=== PATIENT | female | born 1995 | race Caucasian/White ===

== ENCOUNTER 2017-10-10 08:43 | Inpatient (IN) ==
[2017-10-10] MEDS ORDERED: *HR* Nalbuphine 10 MG/ML AMPUL IVP PRN (09:40)
[2017-10-10] MEDS ORDERED: Metoclopramide 10 MG/2 ML VIAL IVP PRN (09:40)
[2017-10-10] MEDS ORDERED: Famotidine 20 MG/2 ML VIAL IVP PRN (09:40)
[2017-10-10] MEDS ORDERED: Ondansetron 4 MG/2 ML VIAL IVP PRN (09:40)
[2017-10-10] MEDS ORDERED: Naloxone 0.4 MG/ML INJ IVP PRN (09:40)
[2017-10-10] MEDS ORDERED: Oxytocin 20 units/ LR 1000 mL 20 UNIT/1,000 ML BAG IVC SCH (09:45)
[2017-10-10] MEDS ORDERED: Ringers Solution, Lactated 1,000 ML IVC SCH (09:45)
--- NOTE | 2017-10-10 10:13 | OB/GYN History & Physical ---
Date of Encounter: 10/10/17 Time of Encounter: 10:03 Assessment and Plan (1) 38 weeks gestation of Current visit: Yes Status: Acute (2) Intrauterine Current visit: Yes Status: Acute Admit to L&D for observation of labor Active management preferred by patient Pain management plan - epidural Maternal/ status reassuring Reactive NST on admission Labs-CBC and clot to hold CEFM Anticipate Signed out to Dr. Youssef for management (3) Rh negative state in antepartum period Current visit: Yes Status: Acute Rhogam evaluation on delivery (4) SROM (spontaneous rupture of membranes) Current visit: Yes Status: Acute Temp evaluation q 2 hours while laboring History of Present Illness Chief complaint: SROM HPI: Ms. Patterson is a 22 year old female at 38 weeks 2 days gestation with an EDB of 10/22/17 dated by early ultrasound. She presents with c/o SROM at 0700 this morning. She reports clear fluid with no odor. She reports some mild contractions about 7 minutes apart. She endorses good fm and denies vb. Her has been complicated by Rh negative blood type and anemia. She has been seen by Dr. Morales. records are available and have been reviewed. Labs: A- GBS- HIV- Hep B- T. Palladium- GC/CL- Rubella immune Varicella immune Past Med Surg Social Fam HX - Past Medical History Medical history: non-contributory Psychiatric history: no psych history - Past Surgical History Surgical History: other Additional surgical history: boil lanced 10/09/2017 - Social History Smoking Status: Current every day smoker Packs per day: 1/2 Smokeless Tobacco Status: No Alcohol use: none Drug use: none - Family History Mother Name: oma patterson Living Status: Still Living Hx Family Medical Disorders: Yes (brain aneurysm 2016) Obstetrical History - Pregnancies : 2 Para: 0 Term: 0 : 0 Ab's: 1 (2017 Miscarriage) Livin Medications and Allergies Clindamycin HCl 300 mg PO QID 7 Days #21 capsule 04/20/17 [Rx] [facility] 04/20/17 [History] Colace 10/09/17 [History] Flintstones Gummies Chew Tab 10/09/17 [History] Iron 10/09/17 [History] 3 Allergy/AdvReac Type Severity Reaction Status Date / Time No Known Allergies Allergy Verified 10/09/17 11:34 Review of System OB All systems PM: reviewed and no additional remarkable complaints except as stated Exam - Constitutional Constitutional: well developed, well nourished, no acute distress, obese - HEENT HEENT: PERRL, Normocephaly, Mucus Membranes Moist - Neck Neck exam: full ROM - Lungs Respiratory exam: CTAB - Cardiovascular Cardiovascular exam: RRR, +S1, +S2 - Breasts Breast: bilateral: normal - Abdomen Abdomen: Present: bowel sounds normal, gravid, non tender - Extremities Extremities exam: normal capillary refill, normal inspection, pedal edema, radial pulses palpable and symmetrical - Vulva Vulva: bilateral: normal - Vagina Vagina: Present: normal moisture - Cervix Dilation: 2 (per RN) Effacement: 70 Station: -2 - Uterus Uterus exam: Present: normal size, normal contour - Adnexa Adnexa: bilateral: normal - Anus/Rectum Anus/Rectum: Present: normal perianal skin Results All other labs normal. - VTE Reasons for not Prescribing Prophylaxis: Treatment not Indicated - Low risk for VTE
[2017-10-10] MEDS ORDERED: Ringers Solution, Lactated 500 ML IVC ONE (10:18)
[2017-10-10] MEDS ORDERED: EPHEDrine 50 MG/ML VIAL IVP PRN (10:18)
--- NOTE | 2017-10-10 10:22 | Anesthesia Evaluation PreOp ---
Date of Encounter: 10/10/17 Time of Encounter: 10:20 - Past History Planned Operation: MAZIN Cardiac History: Denies any Significant Hx Pulmonary History: Smoker (1/2PPD) GERIATRIC NURSE PRACTITIONER History: Denies Any Significant HX Other Medical History: Denies Any Significant HX Anesthesia History: No Prior Anesthetic Complications, Past Anesthesia : Yes Alcohol Use: none Drug use: none Medications and Allergies Clindamycin HCl 300 mg PO QID 7 Days #21 capsule 04/20/17 [Rx] [facility] 04/20/17 [History] Colace 10/09/17 [History] Flintstones Gummies Chew Tab 10/09/17 [History] Iron 10/09/17 [History] 3 Allergy/AdvReac Type Severity Reaction Status Date / Time No Known Allergies Allergy Verified 10/09/17 11:34 - Meds/Allergy Pre-op Review Medications Reviewed: Yes Allergies Reviewed: Yes Beta Blockers on Current Med List: No Anesthesia Exam O2 Sat Height 1.75 m Weight 117.9 kg NPO (# of Hours): 6 Pain Scale: 5 Pain Scale Used: Numeric (1 - 10) - HEENT Pupil (Motor): Pupils equal Mallampati: II Teeth: Normal Oral Opening: Greater than 3 - GERIATRIC NURSE PRACTITIONER LOC: Oriented GERIATRIC NURSE PRACTITIONER Motor: Normal RUE, Normal LUE, Normal RLE, Normal LLE, Normal Face GERIATRIC NURSE PRACTITIONER Sensory: Normal: RUE, LUE, RLE, LLE, Face - Cardiac Rhythm: Regular Murmur: None JVD: No Carotid Bruit: No - Pulmonary Breath Sounds: bilateral Clear Respiratory Effort: Symmetrical Anesthesia Assess/Plan ASA Score: 2 Modified David Scale for Level of Consciousness: Cooperative, oriented, and tranquil Anesthetic Plan: General (plan b), Regional (plan a) Autologous Blood: Yes Monitoring Plan: Standard Monitors Recovery Plan: PACU
[2017-10-10] MEDS ORDERED: Epidural Premix (fent/bupiv) 110 ML EP SCH (10:30)
[2017-10-10 11:08] LABS: Basophils # 0.1 K/mcL (0.0-0.2); Basophils % 0.5 %; Eosinophils # 0.2 K/mcL (0.0-0.6); Eosinophils % 0.9 %; Hematocrit 37.6 % (35.3-44.9); Hemoglobin 12.7 g/dL (11.5-15.4); Immature Granulocytes % 3.3 % (0-4); Lymphocytes # 2.7 K/mcL (0.6-4.6); Lymphocytes % 14.6 %; Mean Corpuscular HGB Conc 33.8 g/dL (31.6-35.5); Mean Corpuscular Hemoglobin 30.2 pg (28.0-33.3); Mean Corpuscular Volume 89.3 fL (83.0-100.0); Mean Platelet Volume 11.4 fL (9.4-12.4); Monocytes # 1.5 K/mcL (0.0-1.3); Monocytes % 7.9 %; Neutrophils # 13.5 K/mcL (1.6-8.9); Platelet Count 260 K/mcL (140-400); Red Blood Count 4.21 M/mcL (3.82-4.97); Red Cell Distribution Width 13.7 % (11.5-14.5); Segmented Neutrophils % 72.8 %
[2017-10-10 11:37] LABS: Amphetamine Screen,Urine Negative ng/mL (Cutoff=1000); Barbiturate Screen,Urine Negative ng/mL (Cutoff=200); Benzodiazepines Screen,Urine Negative ng/mL (Cutoff=200); Cannabinoid Screen,Urine Negative ng/mL (Cutoff = 50); Cocaine Screen,Urine Negative ng/mL (Cutoff= 300); Opiate Screen,Urine Negative ng/mL (Cutoff=300); Phencyclidine Screen,Urine Negative ng/mL (Cutoff=25)
[2017-10-10] MEDS ORDERED: Lidocaine -MPF 1% 5 ML AMPUL ONE (13:59)
--- NOTE | 2017-10-10 14:31 | Anesthesia Procedures ---
Date of Encounter: 10/10/17 Time of Encounter: 14:29 Procedures: Anesthesia - Epidural/Spinal Patient ID/Chart reviewed: Yes Patient examined: Yes OB Eval: Gestational age: 38.2 OB Eval: : 2 OB Eval: Hx Para: 0 OB Eval: Dilated at (cm): 3 OB Eval: Contractions: Non-stressed pattern Consent Obtained: Yes Supplemental Oxygen: None/Room Air Site Prep: Aseptic Technique, Sterile prep and drape, Povidone-Iodine 1% Patient position: upright Local Anesthetic: Lidocaine 1% Amount of Local Anesthetic used: 3 Touhy Needle Gauge: 18 Touhy Needle Depth (cm): 9 Catheter Depth at Skin (cm): 20 Test Dose (1.5% Lido + Epi): Volume given (mls): 5 Test Dose Result: Negative Loading Dose: Other: 10mls of epidural pharm bag premix solution Loading Dose Administered: Thru Catheter Infusion Med: 0.125% Bupivacaine w/ 2 mcg/ml Fentanyl Infusion Rate (mls/hr): 16 ([id number]) Catheter Secured in Place: Tegaderm, Tape Interspace Used: L4-L5 Loss of Resistance (JAK): Yes Blood: No CSF: No Paresthesia: No Procedure: pt tolerated procedure well. no complications. vss. fhr stable. see nursing notes for complete vitals.
--- NOTE | 2017-10-10 15:36 | OB Labor Progress Note ---
Date of Encounter: 10/10/17 Time of Encounter: 15:33 Labor Progress Note - Subjective Subjective: Patient comfortable with epidural - Cervix Cervix: 4/70/-2 - Heart Tones Heart Tones: Category 1 tracing - [place]: IUPC in place-contractions every 7+ movements - Interventions Interventions: Increase pitocin - Plan Plan: Continue active management Titrate pitocin to adequate contraction pattern per policy CEFM Peanut ball and frequent position changes Anticipate
--- NOTE | 2017-10-10 18:49 | OB Labor Progress Note ---
Date of Encounter: 10/10/17 Time of Encounter: 18:46 Labor Progress Note - Subjective Subjective: Pt comfortable with epidural. Plan of care discussed with patient. - Cervix Cervix: 6/70/-1 - Heart Tones Heart Tones: Baseline 140 Moderate variability Accelerations present 15x15 No decelerations FHR category I - [place]: Contractions every 2 minutes and palpate strong - Interventions Interventions: SVE Position change - Plan Plan: Continue active management Titrate pitocin to adequate pattern Continue frequent position changes Anticipate
[2017-10-10] MEDS ORDERED: Penicillin G Potassium 5,000,000 UNIT in 0.9 % Sodium Chloride Mini Bag 100 ML IVPB ONE (21:29)
--- NOTE | 2017-10-10 23:06 | OB Labor Progress Note ---
Date of Encounter: 10/10/17 Time of Encounter: 23:04 Labor Progress Note - Subjective Subjective: Pt remains comfortable with epidural. Reports feeling more pressure. - Cervix Cervix: 6/100/+1 - Heart Tones Heart Tones: Baseline 135 Moderate variability Accelerations present 15x15 No decelerations FHR Category I - Petros Petros: Contractions every 2-3 minutes - Interventions Interventions: SVE Left lateral position change - Plan Plan: Continue active management Continue penicillin prophylaxis Frequent position changes Anticipate
[2017-10-11] MEDS ORDERED: Penicillin G Potassium 2,500,000 UNIT in 0.9 % Sodium Chloride 100 ML IVPB SCH
[2017-10-11] MEDS ORDERED: Acetaminophen 325 MG TABLET PO PRN (00:09)
--- NOTE | 2017-10-11 02:04 | OB Labor Progress Note ---
Date of Encounter: 10/11/17 Time of Encounter: 01:57 Labor Progress Note - Subjective Subjective: Patient is comfortable with epidural. - Cervix Cervix: 9/100/+1 - Heart Tones Heart Tones: Category I tracing - [place]: Every 2+ minutes - Interventions Interventions: SVE position changes - Plan Plan: Continue active management Frequent position changes Anticipate
--- NOTE | 2017-10-11 03:49 | OB Labor Progress Note ---
Date of Encounter: 10/11/17 Time of Encounter: 03:38 Labor Progress Note - Subjective Subjective: Pt remains comfortable with epidural. - Cervix Cervix: 9.5/100/+2 - Heart Tones Heart Tones: FHR Category I - Godwin Godwin: IUPC contractions every 2-3 minutes. - Interventions Interventions: SVE High fowlers x 1 hour - Plan Plan: Continue active management High metz's x 1 hour Anticipate vaginal delivery
--- NOTE | 2017-10-11 05:36 | OB/GYN Procedure Note ---
Delivery - Delivery Date: 10/11/17 Provider: Simran Lund Intrapartum events: none Delivery induction: none Delivery augmentation: pitocin Delivery monitor: external FHT, external uterine, internal FHT, internal uterine Anesthesia: epidural Quantitated Blood Loss: 150 - (s) Infant A Infant Delivery Date: 10/11/17 Delivery Time: 05:00 Presentation: vertex Position: PRETTY Route of delivery: Gender: Male Viability: Viable Pounds: 7 Ounces: 1 Weight Gram: 3.2 kg at 1 minute: 8 at 5 mins: 9 Shoulder Dystocia: not encountered Specimens collected: cord blood Placenta: spontaneous Cord: 3 umbilical vessels - Repair Episiotomy: none Laceration Description: Periurethral (right - hemostatic), Perineal - 1st Degree (repaired ) - Complications Delivery complications: none Delivery comments: Ms. Suazo is a 22-year-old G2 now P1 who is admitted for spontaneous rupture of membranes. She progressed with Pitocin augmentation to the second stage of labor. Under maternal effort she delivered a viable male infant, PRETTY over a first-degree laceration. No nuchal cord was identified and no shoulder dystocia was encountered. The was placed on the maternal abdomen where the mouth and nares were bulb suctioned. scores were 8 at 1 minute and 9 at 5 minutes. The infant weighed 7 lbs. 1 oz (3200g). The placenta delivered ( [place]) spontaneously, intact, with a three-vessel cord. Inspection revealed a first-degree perineal laceration and a right periurethral laceration. The first-degree laceration was repaired with a 3-0 Monocryl suture. The periurethral laceration was left unrepaired as it was hemostatic. The uterus was firm with no active bleeding. The repair was done under epidural anesthesia. EBL was 150 mL. Placenta and umbilical artery blood gases were not sent. There were no complications during the procedure. Mom and baby are skin to skin and nursing following delivery. - Disposition Mom disposition: stable in LDR [place] disposition: stable in LDR
[2017-10-11] MEDS ORDERED: Benzocaine/Menthol 56 GM AEROSOL SPRAY TP PRN (09:24)
[2017-10-11] MEDS ORDERED: Prenatal Vit/FA 1 EACH TABLET PO SCH (09:24)
[2017-10-11] MEDS ORDERED: Oxytocin 20 units/ LR 1000 mL 20 UNIT/1,000 ML BAG IVC SCH (09:24)
[2017-10-11] MEDS ORDERED: Rho Immune Globulin 1,500 UNIT SYRINGE IM PRN (09:24)
[2017-10-11] MEDS: Acetaminophen 325 MG TABLET PO PRN (11:56)
[2017-10-11] MEDS: Ibuprofen 600 MG TABLET PO PRN ×2 (11:56→18:27)
[2017-10-12] MEDS: Ibuprofen 600 MG TABLET PO PRN (07:01)
--- NOTE | 2017-10-12 09:21 | Discharge Summary ---
Date of Encounter: 10/12/17 Time of Encounter: 09:33 - Discharge Diagnosis (1) Vaginal delivery Priority: Primary Status: Acute (2) Breast feeding status of mother Priority: Secondary Status: Acute Comments: pump rx given (3) Rh negative state in antepartum period Priority: Secondary Status: Acute Comments: Rhogam prior to discharge. - Discharge Medications Prescriptions: Ibuprofen [Motrin] 600 mg PO Q6HR PRN #30 tablet PRN Reason: Cramping Docusate [Colace] 100 mg PO BID #60 capsule Home Medications: Flintstones Gummies Chew Tab 10/09/17 [History] Iron 10/09/17 [History] Benzocaine/Menthol [place] [Dermoplast [place]] 1 appl TP QID PRN aerosol 10/12/17 [Rx] Breast Pump [BREAST PUMP] 1 each .ROUTE AD #1 each 10/12/17 [Rx] Docusate [Colace] 100 mg PO BID #60 capsule 10/12/17 [Rx] Ibuprofen [Motrin] 600 mg PO Q6HR PRN #30 tablet 10/12/17 [Rx] Vit/FA 1 each PO DAILY tablet 10/12/17 [Rx] Allergies/Adverse Reactions: 3 Allergy/AdvReac Type Severity Reaction Status Date / Time No Known Allergies Allergy Verified 10/09/17 11:34 Data Procedures and tests throughout hospitalization: Laboratory Tests 10/10/17 10/10/17 10/11/17 10:28 10:28 05:47 WBC 18.6 H RBC 4.21 Hgb 12.7 Hct 37.6 MCV 89.3 MCH 30.2 MCHC 33.8 RDW 13.7 Plt Count 260 MPV 11.4 Immature Gran % 3.3 Seg Neutrophils % 72.8 Lymphocytes % 14.6 Monocytes % 7.9 Eosinophils % 0.9 Basophils % 0.5 Neutrophils # 13.5 H Lymphocytes # 2.7 Monocytes # 1.5 H Eosinophils # 0.2 Basophils # 0.1 Urine Opiates Screen Negative Ur Barbiturates Screen Negative Ur Phencyclidine Scrn Negative Ur Amphetamines Screen Negative U Benzodiazepines Scrn Negative Urine Cocaine Screen Negative U Marijuana (THC) Screen Negative Ur Drug Screen Interp See Below Screen NEGATIVE Baby's Blood Type A RH POSITIVE Mother's Blood Type A RH NEGATIVE Rhogam Indicated YES Rhogam Req for Mother 1 Labs on day of discharge: Labs from last 24 hours 10/11/17 05:47 Screen NEGATIVE Baby's Blood Type A RH POSITIVE Mother's Blood Type A RH NEGATIVE Rhogam Indicated YES Rhogam Req for Mother 1 Date of admission: 10/10/17 08:43 Primary care physician: Ольга Foley CNP Consults: 10/11/17 09:24 Consult to Electric Truck Operator [CONS] Routine Comment: Vaginal delivery, consult needed Discharging clinician: Taylor Kilpatrick Anticipated date of discharge: 10/12/17 - Patient Status Disposition: Home, Self-Care Condition: Good Functional capacity at discharge: independent ambulation Overall status at discharge: patient is progressing back to baseline - Discharge Instructions Follow Up With: Ольга Foley CNP [Primary Care Provider] - Sterling Morales DO [Partnered Physician] - Debbie Gonzales [Resident] - - Diet and Activity Activity: increase activity as tolerated Diet: regular diet Hospital Course Reason for admission: active labor Delivery: Episiotomy: none Laceration: 1st degree Other procedures: none complications: none Discharge diagnosis: IUP at term delivered [place] baby: male Hospital course: - Delivery Date: 10/11/17 Provider: Simran Lund Intrapartum events: none Delivery induction: none Delivery augmentation: pitocin Delivery monitor: external FHT, external uterine, internal FHT, internal uterine Anesthesia: epidural Quantitated Blood Loss: 150 - Infant (s) Infant A Delivery Date: 10/11/17 Infant Delivery Time: 05:00 Presentation: vertex Position: PRETTY Route of delivery: Gender: Male Viability: Viable Pounds: 7 Ounces: 1 Weight Gram: 3.2 kg at 1 minute: 8 at 5 mins: 9 Shoulder Dystocia: not encountered Specimens collected: cord blood Placenta: spontaneous Cord: 3 umbilical vessels - Repair Episiotomy: none Laceration Description: Periurethral (right - hemostatic), Perineal - 1st Degree (repaired ) - Complications Delivery complications: none - Disposition Mom disposition: home PPD1 [place] disposition: home with mother, Time Attestation: Total time spent providing and/or coordinating discharge services: Time Spent: Less than 30 minutes Exam - Constitutional Vitals: Temp Pulse Resp BP Pulse Ox 98.4 F 77 16 118/78 98 08/01/18 04:24 10/12/17 04:24 10/12/17 04:24 10/12/17 04:24 10/12/17 04:24 General appearance IM: A&O X 3 - Respiratory Respiratory exam: Present: CTAB - Cardiovascular Cardiovascular exam IM: Present: RRR - GI/Abdominal GI/Abdominal exam IM: soft - Uterine Tone: Firm - Extremities Exam Extremities exam IM: Present: normal inspection - Neurological Exam Neurological exam: normal gait, oriented X3 - Psychiatric Additional comments: reports some mood swings but overall good mood, pt undecided about contraception at this time. Safe spacing discussed.
[2017-10-12] MEDS ORDERED: Lanolin 7 G OINT...G. TP PRN (09:29)
[2017-10-12] MEDS: Acetaminophen 325 MG TABLET PO PRN (10:05)
[2017-10-12 11:20] VITALS: BP 101/67
== END 2017-10-12 18:30 | disposition home or self-care (01) | DRG 560 ==
LOC: 1NENULAB → OBSVTOIN 08:43 → 1NENUOBS 10-11 07:59
PROVIDERS: ADMIT Obstetrics & Gynecology; ATTEND Obstetrics & Gynecology

== ENCOUNTER → 2019-10-27 14:30 | Observation (INO) | END | disposition home or self-care (01) | LOC: 1NENULAB | PROVIDERS: ADMIT Obstetrics & Gynecology; ATTEND Obstetrics & Gynecology ==

== ENCOUNTER 2019-11-16 07:43 | Inpatient (IN) ==
[2019-11-16] MEDS ORDERED: Metoclopramide 10 MG/2 ML VIAL IVP PRN (08:34)
[2019-11-16] MEDS ORDERED: Famotidine 20 MG/2 ML VIAL IVP PRN (08:34)
[2019-11-16] MEDS ORDERED: Naloxone 0.4 MG/ML INJ IVP PRN (08:34)
[2019-11-16] MEDS ORDERED: D5% in 0.45% NACL 1,000 ML IVC SCH (08:45)
[2019-11-16 08:58] LABS: Basophils # 0.1 K/mcL (0.0-0.2); Basophils % 0.4 %; Eosinophils # 0.2 K/mcL (0.0-0.6); Hematocrit 34.4 % (35.3-44.9); Hemoglobin 11.6 g/dL (11.5-15.4); Immature Granulocytes % 2.4 % (0-4); Mean Corpuscular HGB Conc 33.7 g/dL (31.6-35.5); Mean Corpuscular Hemoglobin 29.3 pg (28.0-33.3); Mean Corpuscular Volume 86.9 fL (83.0-100.0); Mean Platelet Volume 10.4 fL (9.4-12.4); Monocytes # 1.4 K/mcL (0.0-1.3); Neutrophils # 16.1 K/mcL (1.6-8.9); Nucleated Red Blood Cells 0.1 /100 WBC (0); Platelet Count 362 K/mcL (140-400); Red Blood Count 3.96 M/mcL (3.82-4.97); Red Cell Distribution Width 13.4 % (11.5-14.5); Segmented Neutrophils % 72.2 %; White Blood Count 22.4 K/mcL (4.3-11.1)
[2019-11-16 10:04] LABS: Amphetamine Screen,Urine Negative ng/mL (Cutoff=1000); Barbiturate Screen,Urine Negative ng/mL (Cutoff=200); Benzodiazepines Screen,Urine Negative ng/mL (Cutoff=200); Cannabinoid Screen,Urine Negative ng/mL (Cutoff = 50); Cocaine Screen,Urine Negative ng/mL (Cutoff= 300); Opiate Screen,Urine Negative ng/mL (Cutoff=300); Phencyclidine Screen,Urine Negative ng/mL (Cutoff=25)
[2019-11-16] MEDS: Ringers Solution, Lactated 1,000 ML IVC SCH ×2 (10:54→12:26)
[2019-11-16] MEDS ORDERED: *HR* FentaNYL (PF) 100 MCG/2 ML VIAL EP ONE (10:55)
[2019-11-16] MEDS ORDERED: Ropivacaine/PF 0.2% 20 ML VIAL EP ONE (10:55)
[2019-11-16] MEDS ORDERED: EPHEDrine 50 MG/ML VIAL IVP PRN (10:55)
[2019-11-16] MEDS ORDERED: Epidural Premix (fent/bupiv) 110 ML EP SCH (11:00)
[2019-11-16] MEDS ORDERED: Epidural Premix (fent/bupiv) 110 ML EP ONE (11:00)
[2019-11-16] MEDS: Oxytocin 20 units/ LR 1000 mL 20 UNIT/1,000 ML BAG IVC SCH ×2 (12:35→16:38)
[2019-11-16] MEDS ORDERED: Measles/Mumps/Rubella Vacc 0.5 ML VIAL SQ PRN (18:42)
[2019-11-16] MEDS ORDERED: Oxytocin 20 units/ LR 1000 mL 20 UNIT/1,000 ML BAG IVC SCH (18:42)
[2019-11-16] MEDS ORDERED: Oxytocin 20 units/ LR 1000 mL 20 UNIT/1,000 ML BAG IVC ONE (18:42)
[2019-11-16] MEDS ORDERED: Benzocaine/Menthol 56 GM AEROSOL SPRAY TP PRN (18:42)
[2019-11-16] MEDS ORDERED: Ibuprofen 600 MG TABLET PO PRN (18:42)
[2019-11-16] MEDS ORDERED: Lanolin 7 G OINT...G. TP PRN (18:42)
[2019-11-16] MEDS ORDERED: Rho Immune Globulin 1,500 UNIT SYRINGE IM PRN (18:42)
[2019-11-16] MEDS ORDERED: Acetaminophen 325 MG TABLET PO PRN (18:42)
[2019-11-17 07:11] LABS: Basophils # 0.1 K/mcL (0.0-0.2); Basophils % 0.5 %; Eosinophils # 0.3 K/mcL (0.0-0.6); Eosinophils % 1.3 %; Hematocrit 32.3 % (35.3-44.9); Hemoglobin 10.6 g/dL (11.5-15.4); Immature Granulocytes % 2.2 % (0-4); Lymphocytes % 23.8 %; Mean Corpuscular HGB Conc 32.8 g/dL (31.6-35.5); Mean Corpuscular Hemoglobin 29.1 pg (28.0-33.3); Mean Corpuscular Volume 88.7 fL (83.0-100.0); Mean Platelet Volume 10.5 fL (9.4-12.4); Monocytes # 1.5 K/mcL (0.0-1.3); Neutrophils # 13.6 K/mcL (1.6-8.9); Platelet Count 324 K/mcL (140-400); Red Blood Count 3.64 M/mcL (3.82-4.97); Red Cell Distribution Width 13.4 % (11.5-14.5); Segmented Neutrophils % 65.2 %; White Blood Count 20.8 K/mcL (4.3-11.1)
[2019-11-17 07:44] VITALS: BP 108/63
[2019-11-17] MEDS ORDERED: Prenatal Vit/FA 1 EACH TABLET PO SCH (09:00)
== END 2019-11-17 17:00 | disposition home or self-care (01) | DRG 560 ==
LOC: 1NENULAB 07:43 → 1NENUOBS 18:41
PROVIDERS: ADMIT Student in an Organized Health Care Education/Training Program; ATTEND Student in an Organized Health Care Education/Training Program

== ENCOUNTER → 2021-08-04 21:20 | Observation (INO) | END | disposition home or self-care (01) | LOC: 1NENULAB | PROVIDERS: ADMIT Advanced Practice Midwife; ATTEND Advanced Practice Midwife ==

== ENCOUNTER 2021-09-22 19:43 | Inpatient (IN) ==
[2021-09-22 17:55] LABS: Amphetamine Screen,Urine Negative ng/mL (Cutoff=1000); Barbiturate Screen,Urine Negative ng/mL (Cutoff=200); Benzodiazepines Screen,Urine Negative ng/mL (Cutoff=200); Cannabinoid Screen,Urine Negative ng/mL (Cutoff = 50); Cocaine Screen,Urine Negative ng/mL (Cutoff= 300); Opiate Screen,Urine Negative ng/mL (Cutoff=300); Phencyclidine Screen,Urine Negative ng/mL (Cutoff=25)
[2021-09-22 18:12] LABS: Basophils # 0.1 K/mcL (0.0-0.2); Basophils % 0.5 %; Eosinophils # 0.2 K/mcL (0.0-0.6); Eosinophils % 0.9 %; Hematocrit 34.6 % (35.3-44.9); Hemoglobin 11.3 g/dL (11.5-15.4); Immature Granulocytes % 2.2 % (0-4); Lymphocytes # 4.6 K/mcL (0.6-4.6); Lymphocytes % 19.9 %; Mean Corpuscular HGB Conc 32.7 g/dL (31.6-35.5); Mean Corpuscular Hemoglobin 28.6 pg (28.0-33.3); Mean Corpuscular Volume 87.6 fL (83.0-100.0); Mean Platelet Volume 11.5 fL (9.4-12.4); Monocytes # 1.4 K/mcL (0.0-1.3); Monocytes % 6.1 %; Neutrophils # 16.3 K/mcL (1.6-8.9); Platelet Count 374 K/mcL (140-400); Red Blood Count 3.95 M/mcL (3.82-4.97); Segmented Neutrophils % 70.4 %; White Blood Count 23.1 K/mcL (4.3-11.1)
[~2021-09-22 19:43] MED LIST: *HR* Nalbuphine 10 MG/ML AMPUL IV PRN; Azithromycin 500 MG in 0.9 % Sodium Chloride 250 ML IVPB PRN; Famotidine 20 MG/2 ML VIAL IVP PRN; Metoclopramide 10 MG/2 ML VIAL IVP PRN; Naloxone 0.4 MG/ML INJ IVP PRN; Ondansetron 4 MG/2 ML VIAL IVP PRN; Ringers Solution, Lactated 1,000 ML IVC SCH
[2021-09-22 20:27] LABS: Chlamydia Trachomatis DNA Ur NOT DETECTED (Not Detect)
[2021-09-22] MEDS ORDERED: Oxytocin 30 UNIT/503 ML BAG IVC SCH (21:00)
[2021-09-22] MEDS ORDERED: *HR* FentaNYL (PF) 100 MCG/2 ML VIAL EP ONE (22:41)
[2021-09-22] MEDS ORDERED: Ropivacaine/PF 0.2% 20 ML VIAL EP ONE (22:41)
[2021-09-22] MEDS ORDERED: EPHEDrine 50 MG/ML VIAL IVP PRN (22:41)
[2021-09-22] MEDS ORDERED: Epidural Premix (fent/bupiv) 110 ML EP SCH (22:45)
[2021-09-22] MEDS ORDERED: *HR* FentaNYL (PF) 100 MCG/2 ML VIAL ONE (22:48)
[2021-09-22] MEDS ORDERED: Ropivacaine/PF 0.2% 20 ML VIAL ONE (22:48)
[2021-09-23] MEDS ORDERED: Ibuprofen 600 MG TABLET PO ONE (01:47)
[2021-09-23] MEDS ORDERED: Benzocaine/Menthol 56 GM AEROSOL SPRAY TP PRN (04:26)
[2021-09-23] MEDS ORDERED: Measles/Mumps/Rubella Vacc 0.5 ML VIAL SQ PRN (04:26)
[2021-09-23] MEDS ORDERED: Ondansetron ODT 4 MG TAB.RAPDIS SL PRN (04:26)
[2021-09-23] MEDS ORDERED: Lanolin 7 G OINT...G. TP PRN (04:26)
[2021-09-23] MEDS ORDERED: Rho Immune Globulin 1,500 UNIT SYRINGE IM PRN (04:26)
[2021-09-23] MEDS ORDERED: Oxytocin 30 UNIT/503 ML BAG IVC SCH (04:26)
[2021-09-23] MEDS: Ibuprofen 600 MG TABLET PO SCH ×3 (05:36→21:12)
[2021-09-23] MEDS: Acetaminophen 325 MG TABLET PO SCH ×3 (05:36→21:12)
[2021-09-23] MEDS: Prenatal Vit/FA 1 EACH TABLET PO SCH (10:30)
[2021-09-23 20:40] VITALS: O2SAT 97
[2021-09-24] MEDS: Acetaminophen 325 MG TABLET PO SCH (06:35)
[2021-09-24] MEDS: Ibuprofen 600 MG TABLET PO SCH (06:35)
[2021-09-24 07:02] VITALS: BP 90/54; PULSE 62; TEMP 98
[2021-09-24] MEDS: Prenatal Vit/FA 1 EACH TABLET PO SCH (08:04)
== END 2021-09-24 11:02 | disposition home or self-care (01) | DRG 807 ==
LOC: 1NENULAB → 1NENUOBS 09-23 04:02
PROVIDERS: ADMIT Registered Nurse; ATTEND Registered Nurse